=== PATIENT | female | born 1985 | race Caucasian/White ===

== ENCOUNTER 2016-10-07 16:23 | Emergency (ER) | payer BC ==
[2016-10-07 17:56] VITALS: BP 134/100
[2016-10-07] MEDS ORDERED: Albuterol/Ipratropium NEB.SOL* Albuterol 2.5 MG/Ipratropium 0.5 MG 3 ML INH ONE (18:27)
[2016-10-07] MEDS ORDERED: predniSONE TAB* 20 MG PO ONE (18:27)
--- NOTE | 2016-10-07 18:27 | UC ---
Respiratory Complaint HPI - HPI Summary HPI Summary: worsening bronchospastic cough, seen pcp last week rx robitussin and codeine without relief of any symptoms - History of Current Complaint Chief Complaint: UCRespiratory Stated Complaint: COUGH, SORE THROAT, AND EAR ACHE Time Seen by Provider: 10/07/16 18:20 Hx Obtained From: Patient Hx Last Menstrual Period: IUD ?: No Onset/Duration: Gradual Onset, Lasting Weeks - 1, Still Present, Worse Since - daily Timing: Constant Severity Initially: Moderate Severity Currently: Moderate Character: Cough: Nonproductive Aggravating Factors: Deep Breaths, Recumbent Position Alleviating Factors: Nothing Associated Signs And Symptoms: Positive: Chills, Pleuritic Chest Pain, URI, Nasal Congestion, Sinus Discomfort - Allergies/Home Medications Allergies/Adverse Reactions: Allergies Allergy/AdvReac Type Severity Reaction Status Date / Time Oxycodone [From Percocet] Allergy Vomiting Verified 10/07/16 17:56 Home Medications: Home Medications Dextromethorphan-Phenylephrine [Vicks Dayquil Cold & Flu 10-5-325 mg/15Ml] 1 liq PO PRN 10/07/16 [History] Pprswsqmzacwa-Bnwgmszsxo-Ugtih [Nyquil Severe Cold/Flu 5-6.25-10-325 mg/15Ml] 1 liq PO PRN 10/07/16 [History] [place]* 10/07/16 [History] PMH/Surg Hx/FS Hx/Imm Hx Previously Healthy: No Endocrine History Of: Denies: Diabetes, Thyroid Disease Cardiovascular History Of: Denies: Cardiac Disorders, Hypertension, Pacemaker/ICD Respiratory History Of: Denies: COPD, Asthma GI/ History Of: Denies: Ulcer Neurological History Of: Reports: Migraine - 1 PER MONTH Other History Of: Negative For: Anticoagulant Therapy - Surgical History Surgical History: Yes Surgery Procedure, Year, and Place: WISDOM TEETH REMOVED - Family History Known Family History: Positive: None Family History: no reported cardio vascular issues in family lineage - Social History Occupation: Employed Full-time Lives: With Family Alcohol Use: None Substance Use Type: None Smoking Status (MU): Never Smoked Tobacco Have You Smoked in the Last Year: No When Did the Patient Quit Smoking/Using Tobacco: 10/19/2013 - Immunization History Most Recent Influenza Vaccination: 2013 Most Recent Tetanus Shot: 2004 Review of Systems Constitutional: Chills, Fatigue Skin: Negative Eyes: Negative ENT: Ear Ache, Nasal Discharge Respiratory: Cough Cardiovascular: Chest Pain Gastrointestinal: Negative Genitourinary: Negative Motor: Negative Neurovascular: Negative Musculoskeletal: Negative Neurological: Negative Psychological: Negative All Other Systems Reviewed And Are Negative: Yes Physical Exam Triage Information Reviewed: Yes Appearance: No Pain Distress, Well-Nourished, Ill-Appearing - mild Vital Signs: Initial Vital Signs Temp 97.8 F 10/07/16 17:52 Pulse 68 10/07/16 17:52 Resp 16 10/07/16 17:52 BP 134/100 10/07/16 17:52 Pulse Ox 100 10/07/16 17:52 Vital Signs Reviewed: Yes Eye Exam: Normal Eyes: Positive: Conjunctiva Clear ENT Exam: Normal ENT: Positive: Hearing grossly normal, Pharynx normal, Nasal congestion, Nasal drainage, TMs normal. Negative: Tonsillar swelling, Tonsillar exudate, Trismus , Muffled/hoarse voice Dental Exam: Normal Neck exam: Normal Neck: Positive: Supple, Nontender, No Lymphadenopathy Respiratory Exam: Other Respiratory: Positive: Chest non-tender, No respiratory distress, No accessory muscle use, Accessory muscle use, Wheezing Cardiovascular: Positive: RRR, No Murmur, Pulses Normal, Brisk Capillary Refill Musculoskeletal Exam: Normal Musculoskeletal: Positive: Strength Intact, ROM Intact, No Edema Neurological Exam: Normal Neurological: Positive: Alert, Muscle Tone Normal Psychological Exam: Normal Skin Exam: Normal UC Diagnostic Evaluation - Laboratory O2 Sat by Pulse Oximetry: 100 Re-Evaluation - Re-Evaluation First Eval Change: Improved - increase air movement and less cough Respiratory Course/Dx - Course Course Of Treatment: prednisone, zithromax, albuterol, increase fluids, follow with pcp - Differential Dx/Diagnosis Differential Diagnosis/HQI/PQRI: Asthma, Bronchitis, Laryngitis, Sinusitis Provider Diagnoses: Bronchitis with Bronchospastic cough Discharge - Discharge Plan Condition: Stable Disposition: HOME Prescriptions: Albuterol 2.5MG/3ML (0.083%)* [Ventolin 2.5 MG/3 ML NEB.HECTOR*] 2.5 mg INH Q6H PRN #1 box PRN Reason: cough/wheeze Albuterol HFA INHALER* [Ventolin HFA Inhaler*] 2 puff INH Q6H PRN #1 mdi PRN Reason: cough/wheeze Azithromycin TAB* [Zithromax TAB (Z-ORA)*] 0 mg PO .Z-ORA INSTRUCTIONS #6 tab predniSONE TAB* [Deltasone TAB*] 10 mg PO DAILY #20 tab Patient Education Materials: How to Use a Metered-Dose Inhaler (ED), Acute Bronchitis (ED), How to Use a Nebulizer (ED), Bronchospasm (ED) Referrals: Fallon Ferreira MD [Primary Care Provider] - If Needed
== END 2016-10-07 19:01 | disposition home or self-care (01) ==
LOC: UCEAST 16:23
DX: J20.9 Acute bronchitis, unspecified (principal); Z88.2 Allergy status to sulfonamides; Z87.891 Personal history of nicotine dependence
CPT/HCPCS: 94640; 99212; A9270-GY; G0463; J7512

== ENCOUNTER 2016-10-24 16:34 | Emergency (ER) | payer BC ==
[2016-10-24 17:25] VITALS: BP 128/75
--- NOTE | 2016-10-24 18:28 | UC ---
Ear Complaint HPI - HPI Summary HPI Summary: ONE WEEK OF BILATERAL EAR PAIN. NOW HAVING DENTAL PAIN LEFT UPPER TE3ETH. HAS DENTAL APPOINTMENT NEXT FRIDAY - History of Current Complaint Chief Complaint: UCGeneralIllness Stated Complaint: EAR PAIN Time Seen by Provider: 10/24/16 17:29 Hx Obtained From: Patient Hx Last Menstrual Period: 10/17/16 Onset/Duration: Gradual Onset, Lasting Days, Still Present Severity Initially: Moderate Severity Currently: Severe Associated Signs/Symptoms: Positive: URI Symptoms - Allergies/Home Medications Allergies/Adverse Reactions: Allergies Allergy/AdvReac Type Severity Reaction Status Date / Time Oxycodone [From Percocet] Allergy Vomiting Verified 10/24/16 17:25 Home Medications: Home Medications Ibuprofen [Ibuprofen 200 MG] 2 tab PRN 10/24/16 [History] PMH/Surg Hx/FS Hx/Imm Hx Previously Healthy: Yes Endocrine History Of: Denies: Diabetes, Thyroid Disease Cardiovascular History Of: Denies: Cardiac Disorders, Hypertension, Pacemaker/ICD Respiratory History Of: Denies: COPD, Asthma GI/ History Of: Denies: Ulcer Neurological History Of: Reports: Migraine - 1 PER MONTH Other History Of: Negative For: Anticoagulant Therapy - Surgical History Surgical History: Yes Surgery Procedure, Year, and Place: WISDOM TEETH REMOVED - Family History Known Family History: Positive: None Negative: Cardiac Disease Family History: no reported cardio vascular issues in family lineage - Social History Occupation: Employed Full-time Lives: With Family Alcohol Use: None Substance Use Type: None Smoking Status (MU): Former Smoker Have You Smoked in the Last Year: No When Did the Patient Quit Smoking/Using Tobacco: 10/19/2013 Household Exposure Type: Cigarettes - Immunization History Most Recent Influenza Vaccination: 05/2016 Most Recent Tetanus Shot: 2004 Review of Systems Constitutional: Negative Skin: Negative Eyes: Negative ENT: Dental Pain, Ear Ache Respiratory: Negative Cardiovascular: Negative Gastrointestinal: Negative Genitourinary: Negative Motor: Negative Neurovascular: Negative Musculoskeletal: Negative Neurological: Negative Psychological: Negative All Other Systems Reviewed And Are Negative: Yes Physical Exam Triage Information Reviewed: Yes Appearance: Well-Appearing, Well-Nourished, Pain Distress - MODERATE Vital Signs: Initial Vital Signs Temp 97.3 F 10/24/16 17:21 Pulse 67 10/24/16 17:21 Resp 16 10/24/16 17:21 BP 128/75 10/24/16 17:21 Pulse Ox 98 10/24/16 17:21 Vital Signs Reviewed: Yes Eye Exam: Normal Eyes: Positive: Conjunctiva Clear ENT: Positive: Hearing grossly normal, Pharynx normal, TM dull Dental: Positive: Percussion Tenderness @ - #12, #13 Neck: Positive: Supple, Tenderness @ - LEFT ANTERIOR CERVICAL LN, Enlarged Nodes @ - LEFT ANTERIOR CERVICAL LN Respiratory Exam: Normal Respiratory: Positive: Chest non-tender, Lungs clear, Normal breath sounds, No respiratory distress, No accessory muscle use Cardiovascular Exam: Normal Cardiovascular: Positive: RRR, No Murmur, Pulses Normal, Brisk Capillary Refill Abdominal Exam: Normal Abdomen Description: Positive: Nontender, No Organomegaly Musculoskeletal Exam: Normal Musculoskeletal: Positive: Strength Intact, ROM Intact Neurological Exam: Normal Psychological Exam: Normal Skin Exam: Normal Ear Complaint Course/Dx - Differential Dx/Diagnosis Differential Diagnosis/HQI/PQRI: Otitis Externa, Otitis Media, URI Provider Diagnoses: OTITIS SEROUS. OTALGIA. ODONTOGENIC PAIN Discharge - Discharge Plan Condition: Stable Disposition: HOME Prescriptions: Amoxicillin/Clavulanate TAB* [Augmentin TAB 875*] 875 mg PO BID #20 tab traMADol TAB* [Ultram*] 50 mg PO Q12H PRN #10 tab MDD two tabs PRN Reason: Pain Patient Education Materials: Earache (ED), Toothache (ED), Serous Otitis Media (ED) Referrals: Fallon Ferreira MD [Primary Care Provider] - [facility]: 1 - TENDER HERE
== END 2016-10-24 18:13 | disposition home or self-care (01) ==
LOC: UCEAST 16:34
DX: H65.03 Acute serous otitis media, bilateral (principal); H92.03 Otalgia, bilateral; K08.89 Other specified disorders of teeth and supporting structures; Z87.891 Personal history of nicotine dependence; Z86.69 Personal history of other diseases of the nervous system and sense organs
CPT/HCPCS: 99212; G0463

== ENCOUNTER 2017-11-04 18:16 | Emergency (ER) | payer BC ==
[2017-11-04 18:30] VITALS: BP 120/79
--- NOTE | 2017-11-04 18:55 | UC ---
Dental HPI - HPI Summary HPI Summary: Patient presents with complaints of dental pain, the left upper second molar began to hurt two days ago. She denies any injury or trauma to the tooth, she states it just started to hurt.She states it is sharp piercing pain. She states she has been taking Tylenol and Advil with no significant relief. - History of Current Complaint Hx Obtained From: Patient Hx Last Menstrual Period: <1 WEEK AGO ?: No Onset/Duration: Sudden Onset, Lasting Days Severity: Moderate Pain Intensity: 10 Aggravating Factor(s): Chewing <Brionna Quinones - Last Filed: 11/04/17 18:49> <Laurence Shin - Last Filed: 11/04/17 19:13> - History of Current Complaint Chief Complaint: UCDentalProblem Stated Complaint: TOOTH PAIN Time Seen by Provider: 11/04/17 18:42 - Allergies/Home Medications Allergies/Adverse Reactions: Allergies Allergy/AdvReac Type Severity Reaction Status Date / Time MS Oxycodone [From Percocet] Allergy Vomiting Verified 11/04/17 18:29 PMH/Surg Hx/FS Hx/Imm Hx Previously Healthy: Yes Other History Of: Negative For: Anticoagulant Therapy - Surgical History Surgical History: Yes Surgery Procedure, Year, and Place: WISDOM TEETH REMOVED - Family History Known Family History: Positive: None Negative: Cardiac Disease Family History: no reported cardio vascular issues in family lineage - Social History Occupation: Employed Full-time Lives: Alone Alcohol Use: None Substance Use Type: None Smoking Status (MU): Former Smoker Have You Smoked in the Last Year: No When Did the Patient Quit Smoking/Using Tobacco: 10/19/2013 Household Exposure Type: Cigarettes - Immunization History Most Recent Influenza Vaccination: 05/2016 Most Recent Tetanus Shot: 2004 <Brionna Quinones - Last Filed: 11/04/17 18:49> Review of Systems Constitutional: Negative Skin: Negative Eyes: Negative ENT: Dental Pain Respiratory: Negative Cardiovascular: Negative Gastrointestinal: Negative Genitourinary: Negative Motor: Negative Neurovascular: Negative Musculoskeletal: Negative Neurological: Negative Psychological: Negative Is Patient Immunocompromised?: No All Other Systems Reviewed And Are Negative: Yes <Brionna Quinones - Last Filed: 11/04/17 18:49> Physical Exam Triage Information Reviewed: Yes Appearance: Well-Appearing Vital Signs: Initial Vital Signs Temp 98.3 F 11/04/17 18:26 Pulse 80 11/04/17 18:26 Resp 16 11/04/17 18:26 BP 120/79 11/04/17 18:26 Pulse Ox 100 11/04/17 18:26 Vital Signs Reviewed: Yes Eye Exam: Normal ENT Exam: Other - pain on palpation of the left upper second molar, with old filling present, mild erythma noted of lateral gum tissue. no induration or flucuance. Dental Exam: Normal Neck exam: Normal Neck: Positive: 1 Respiratory Exam: Normal Cardiovascular Exam: Normal Abdominal Exam: Normal Musculoskeletal Exam: Normal Neurological Exam: Normal Psychological Exam: Normal Skin Exam: Normal <Brionna Quinones - Last Filed: 11/04/17 18:49> Vital Signs: Initial Vital Signs Temp 98.3 F 11/04/17 18:26 Pulse 80 11/04/17 18:26 Resp 16 11/04/17 18:26 BP 120/79 11/04/17 18:26 Pulse Ox 100 11/04/17 18:26 <Laurence Shin - Last Filed: 11/04/17 19:13> Dental Complaint Course/Dx - Course Course Of Treatment: Patient presents with complaints of dental pain, she does have a filling in the tooth of question, he did have some induration, of the lateral gumline. She was treated with penvk 500 mg by mouth four times daily, and pain was addressed with tyelnol and codeine. She was referred to dentist. - Differential Dx/Diagnosis Differential Diagnosis/Dx: Dental Abscess, Dental Caries Provider Diagnoses: dental abscess. dental pain <Brionna Quinones - Last Filed: 11/04/17 18:49> Discharge <Brionna Quinones - Last Filed: 11/04/17 18:49> <Laurence Shin - Last Filed: 11/04/17 19:13> - Discharge Plan Condition: Stable Disposition: HOME Prescriptions: Acetaminop/Codeine 30 MG TAB* [Tylenol/Codeine 30 MG TAB*] 1 - 2 tab PO Q6H PRN #14 tab MDD 6 PRN Reason: dental pain Penicillin VK TAB* [Penicillin VK 250 mg Tab*] 500 mg PO QID #40 tab Patient Education Materials: Dental Abscess (ED), Toothache (ED) Referrals: Fallon Ferreira MD [Primary Care Provider] - Attestation Statement User Type: Provider - I was available for consult. This patient was seen by the EBONY. The patient was not presented to, seen by, or examined by me. -Naty <Laurence Shin - Last Filed: 11/04/17 19:13>
== END 2017-11-04 18:50 | disposition home or self-care (01) ==
LOC: UCEAST 18:16
DX: K04.7 Periapical abscess without sinus (principal); K08.89 Other specified disorders of teeth and supporting structures; Z88.5 Allergy status to narcotic agent; Z87.891 Personal history of nicotine dependence
CPT/HCPCS: 99212; G0463

== ENCOUNTER 2017-12-24 20:58 | Emergency (ER) | payer SELFPAY ==
[2017-12-24 21:09] VITALS: BP 130/78
[2017-12-24] MEDS ORDERED: Ibuprofen TAB* 600 MG PO ONE (21:15)
--- NOTE | 2017-12-24 21:36 | RAD ---
HISTORY: Right ankle and right foot pain, trauma COMPARISONS: None VIEWS: 7, Frontal, lateral, and oblique views of the right ankle and of the right foot FINDINGS: BONE DENSITY: Normal. BONES: There is no displaced fracture. JOINTS: There is no arthropathy. ALIGNMENT: There is no dislocation. SOFT TISSUES: Unremarkable. OTHER FINDINGS: None. IMPRESSION: NO ACUTE OSSEOUS INJURY TO THE RIGHT FOOT OR RIGHT ANKLE. IF SYMPTOMS PERSIST, RECOMMEND REPEAT IMAGING.
--- NOTE | 2017-12-24 21:44 | UC ---
Mary Evans Rebecca, scribed for Philipp Peters MD on 12/24/17 at 2118 . Lower Extremity/Ankle HPI - HPI Summary HPI Summary: Patient is a 32 y/o F who presents to [facility] c/o right ankle and foot pain s/p suspected twisting. She reports that while at work today, at approximately 1100 , she was walking down concrete steps carrying a few small rugs when her foot suddenly "tweaked." States she is unsure exactly what happened, though she suspects the foot inverted. Pain has gradually worsened since onset and is currently severe, ranked 8/10. Took an Aleve when the incident first occurred which slightly improved symptoms. Pain aggravated by twisting the foot. - History of Current Complaint Chief Complaint: UCLowerExtremity Stated Complaint: ANKLE INJURY Time Seen by Provider: 12/24/17 21:05 Hx Obtained From: Patient Hx Last Menstrual Period: 1 week ago Onset/Duration: Gradual Onset, Lasting Hours, Still Present Severity Currently: Severe Pain Intensity: 8 Pain Scale Used: 0-10 Numeric Aggravating Factor(s): Other - Twisting the foot Alleviating Factor(s): OTC Meds Able to Bear Weight: Yes - Allergies/Home Medications Allergies/Adverse Reactions: Allergies Allergy/AdvReac Type Severity Reaction Status Date / Time acetaminophen [From Percocet] AdvReac Vomiting Verified 12/24/17 21:04 oxycodone [From Percocet] AdvReac Vomiting Verified 12/24/17 21:04 Home Medications: Home Medications Naproxen Sodium [Aleve] 220 mg PO Q12HR PRN 12/24/17 [History Confirmed 12/24/17 ] Rizatriptan Benzoate [Rizatriptan Benzoate Odt] 10 mg PO PRN 12/24/17 [History] PMH/Surg Hx/FS Hx/Imm Hx - Additional Past Medical History Additional PMH: No PMHx HTN, DM, CAD - Surgical History Surgical History: Yes Surgery Procedure, Year, and Place: Dental - Family History Known Family History: Positive: Hypertension, Diabetes, Other - Lung CA, stroke - Social History Alcohol Use: None Substance Use Type: None Smoking Status (MU): Never Smoked Tobacco Review of Systems Constitutional: Negative Skin: Negative Eyes: Negative ENT: Negative Respiratory: Negative Cardiovascular: Negative Gastrointestinal: Negative Genitourinary: Negative Motor: Negative Neurovascular: Negative Musculoskeletal: Other: - Right foot and ankle pain Neurological: Negative Psychological: Negative All Other Systems Reviewed And Are Negative: Yes Physical Exam - Summary Physical Exam Summary: VITAL SIGNS: Reviewed. GENERAL: ~Patient is a well developed and nourished female who is lying comfortable in the stretcher. ~Patient is not in any acute respiratory distress. HEAD AND FACE: Normocephalic EYES: PERRLA, EOMI x 2. EARS: Hearing grossly intact. MOUTH: Oropharynx within normal limits. NECK: Supple, trachea is midline, no adenopathy, no JVD, no carotid bruit. CHEST: Symmetric, no tenderness at palpation LUNGS: Clear to auscultation bilaterally. No wheezing or crackles. CVS: Regular rate and rhythm, S1 and S2 present, no murmurs or gallops appreciated. ABDOMEN: Soft, non-tender. Bowel sounds are normal. No abdominal abnormal pulsations. EXTREMITIES: Full ROM in all major joints, no edema, no cyanosis or clubbing. Slight tenderness on the dorsal aspect of the foot. NEURO: Alert and oriented x 3. No acute neurological deficits. Speech is normal and follows commands. SKIN: Dry and warm Triage Information Reviewed: Yes Vital Signs: Initial Vital Signs Temp 98.0 F 12/24/17 21:06 Pulse 76 12/24/17 21:06 Resp 18 12/24/17 21:06 BP 130/78 12/24/17 21:06 Pulse Ox 100 12/24/17 21:06 Vital Signs Reviewed: Yes Lower Extremity Course/Dx - Course Course Of Treatment: Patient is a 32 y/o F who presents to [facility] c/o right ankle and foot pain s/p suspected twisting. She reports that while at work today , at approximately 1100, she was walking down concrete steps carrying a few small rugs when her foot suddenly "tweaked." States she is unsure exactly what happened, though she suspects the foot inverted. Pain has gradually worsened since onset and is currently severe, ranked 8/10. Took an Aleve when the incident first occurred which slightly improved symptoms. Pain aggravated by twisting the foot. While at [facility] pt took Ibuprofen. Foot and ankle xrays negative for fracture or dislocation. Patient was placed an NERISSA bandage and discharged home with f/u of PMD. The patient was found to have increase BP in UC. The patient will follow up with PCP for better control of BP. - Differential Dx/Diagnosis Differential Diagnosis/HQI/PQRI: Bursitis, Contusion, Fracture (Closed), Sprain , Strain Provider Diagnoses: Ankle and foot sprain Discharge - Sign-Out/Discharge Documenting (check all that apply): Discharge - Discharge Plan Condition: Stable Disposition: HOME Patient Education Materials: Ankle Sprain (DC), Foot Sprain (ED) Referrals: [facility] [Outside] - 3 Days Additional Instructions: FOLLOW UP WITH YOUR PRIMARY CARE PROVIDER WITHIN ONE WEEK FOR HIGH BLOOD PRESSURE NOTED TODAY. - Billing Disposition and Condition Condition: STABLE Disposition: HOME The documentation as recorded by the Mary goodrich Rebecca accurately reflects the service I personally performed and the decisions made by Fran joseph Walter, MD.
== END 2017-12-24 21:51 | disposition home or self-care (01) ==
LOC: MERGE 20:58 → UCEAST 20:58
DX: S93.601A Unspecified sprain of right foot, initial encounter (principal); S93.401A Sprain of unspecified ligament of right ankle, initial encounter; X58.XXXA Exposure to other specified factors, initial encounter; Y93.01 Activity, walking, marching and hiking; Y92.9 Unspecified place or not applicable; Z88.6 Allergy status to analgesic agent; Z88.5 Allergy status to narcotic agent
CPT/HCPCS: 99202; A9270-GY; G0463

== ENCOUNTER 2018-06-23 18:14 | Emergency (ER) | payer BC ==
[2018-06-23 18:26] VITALS: BP 141/84
--- NOTE | 2018-06-23 18:55 | UC ---
Skin Complaint HPI - HPI Summary HPI Summary: 33-year-old female presents with complaints of a pruritic rash to her bilateral upper arms. Symptoms began 3 days ago after returning from a cruise to [place]. Denies any changes to soaps, lotions, cosmetics, insect bites, or known contact with environmental irritants. She is unsure about the detergent that was used for the cleaning of the linens on the cruise ship and she ate some exotic foods while on the cruise. Has tried topical Benadryl and calamine lotion without relief. Reports her who was traveling with her on the cruise is asymptomatic. - History of Current Complaint Chief Complaint: UCSkin Time Seen by Provider: 06/23/18 18:26 Stated Complaint: RASH Hx Obtained From: Patient Hx Last Menstrual Period: 06/08/2018 ?: No Onset/Duration: Gradual Onset, Lasting Days - 3 Onset Severity: Mild Current Severity: Moderate Pain Intensity: 0 Location: Other - And bilateral upper arms Character: Pruritus Aggravating Factor(s): Clothing, Touch Alleviating Factor(s): Nothing Associated Signs & Symptoms: Positive: Rash. Negative: Difficulty Breathing, Fever, Chills, Wheezing, Throat Tightening - Allergy/Home Medications Allergies/Adverse Reactions: Allergies Allergy/AdvReac Type Severity Reaction Status Date / Time acetaminophen [From Percocet] AdvReac Vomiting Verified 06/23/18 18:20 oxycodone [From Percocet] AdvReac Vomiting Verified 06/23/18 18:20 Review of Systems Constitutional: Negative Skin: Rash Respiratory: Negative Is Patient Immunocompromised?: No All Other Systems Reviewed And Are Negative: Yes PMH/Surg Hx/FS Hx/Imm Hx Neurological History: Migraine - Surgical History Surgical History: None Surgery Procedure, Year, and Place: WISDOM TEETH REMOVED - Family History Known Family History: Positive: Hypertension, Diabetes, Other - Lung CA, stroke Family History: no reported cardio vascular issues in family lineage - Social History Occupation: Employed Full-time Lives: With Family Alcohol Use: Rare Substance Use Type: None Smoking Status (MU): Former Smoker Have You Smoked in the Last Year: No When Did the Patient Quit Smoking/Using Tobacco: 10/19/2013 Household Exposure Type: Cigarettes - Immunization History Most Recent Influenza Vaccination: 05/2016 Most Recent Tetanus Shot: 2004 Physical Exam Triage Information Reviewed: Yes Appearance: Well-Appearing, No Pain Distress, Well-Nourished Vital Signs: Initial Vital Signs Temp 98.5 F 06/23/18 18:19 Pulse 78 06/23/18 18:19 Resp 18 06/23/18 18:19 BP 141/84 06/23/18 18:19 Pulse Ox 100 06/23/18 18:19 Eyes: Positive: Conjunctiva Clear. Negative: Discharge ENT: Positive: Pharynx normal, Uvula midline, Other - Airway patent Respiratory: Positive: Lungs clear, Normal breath sounds, No respiratory distress Cardiovascular: Positive: RRR, No Murmur Neurological: Positive: Alert Skin: Positive: rashes - Diffuse papular rash to bilateral upper arms Course/Dx - Course Course Of Treatment: 33 year old female presents with prurutic rash to bilateral upper arms. The localization and appearance of rash suggestive of a contact dermatitis. No identifiable irritant as patient recently returned from cruise and had multiple possible contacts. Will treat with high potency steroid ointment and oral diphenhydramine as needed for itching. - Diagnoses Provider Diagnoses: contact dermatitis Discharge - Sign-Out/Discharge Documenting (check all that apply): Patient Departure All imaging exams completed and their final reports reviewed: No Studies - Discharge Plan Condition: Stable Disposition: HOME Prescriptions: Halobetasol Propionate 15 gm TP BID #30 gm Patient Education Materials: Contact Dermatitis (ED) Referrals: Fallon Ferreira MD [Primary Care Provider] - If Needed Additional Instructions: Apply halobetasol ointment to affected area twice daily. Do not use for more than 2 weeks. You may take an [id number] diphenhydramine (Benadryl) according to directions as needed for itching. Follow-up with your primary care provider if symptoms do not improve. - Billing Disposition and Condition Condition: STABLE Disposition: Home
== END 2018-06-23 18:58 | disposition home or self-care (01) ==
LOC: UCEAST 18:14
DX: L25.9 Unspecified contact dermatitis, unspecified cause (principal); Z88.6 Allergy status to analgesic agent; Z88.5 Allergy status to narcotic agent; Z87.891 Personal history of nicotine dependence
CPT/HCPCS: 99212; G0463

== ENCOUNTER 2019-01-03 07:30 | Emergency (ER) | payer BC ==
[2019-01-03 07:49] VITALS: BP 121/75
--- NOTE | 2019-01-03 07:57 | UC ---
Respiratory Complaint HPI - HPI Summary HPI Summary: Patient is a 33 year old woman , who present today to the urgent care with URI symptoms for past 1 week. She reports sore throat and productive cough, producing greenish phlegm. Also feels congested with ear pain, more on the left side. Chest pain with coughing. 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 She is also exposed to a lot of kids. No skin rash. no fevers at home. Denies any shortness of breath . Denies any abdominal pain , nausea or vomiting , diarrhea or constipation. - History of Current Complaint Chief Complaint: UCRespiratory Stated Complaint: COUGH SORE THROAT EAR PAIN Time Seen by Provider: 01/03/19 07:39 Hx Obtained From: Patient Hx Last Menstrual Period: 12/27/18 ?: No Pain Intensity: 8 - Allergies/Home Medications Allergies/Adverse Reactions: Allergies Allergy/AdvReac Type Severity Reaction Status Date / Time acetaminophen [From Percocet] AdvReac Vomiting Verified 01/03/19 07:49 oxycodone [From Percocet] AdvReac Vomiting Verified 01/03/19 07:49 Home Medications: Home Medications Dm/PE/Acetaminophen/Doxylamine [Vicks Nyquil Severe Cold-Flu] 1 each PO ONCE PRN 01/03/19 [History Confirmed 01/03/19] PMH/Surg Hx/FS Hx/Imm Hx - Additional Past Medical History Additional PMH: chronic migraines Previously Healthy: Yes Other History Of: Negative For: Anticoagulant Therapy - Surgical History Surgical History: Yes Surgery Procedure, Year, and Place: WISDOM TEETH REMOVED - Family History Known Family History: Positive: None, Hypertension, Diabetes, Other - Lung CA, stroke Negative: Cardiac Disease Family History: no reported cardio vascular issues in family lineage - Social History Alcohol Use: None Substance Use Type: None Smoking Status (MU): Former Smoker Have You Smoked in the Last Year: No When Did the Patient Quit Smoking/Using Tobacco: 10/19/2013 Household Exposure Type: Cigarettes - Immunization History Most Recent Influenza Vaccination: 05/2016 Most Recent Tetanus Shot: 2004 Review of Systems All Other Systems Reviewed And Are Negative: Yes Constitutional: Positive: Negative Skin: Positive: Negative Eyes: Positive: Negative ENT: Positive: Sore Throat, Ear Ache, Sinus Congestion Respiratory: Positive: Cough - productive of greenish phlegm Cardiovascular: Positive: Negative Gastrointestinal: Positive: Negative Genitourinary: Positive: Negative Motor: Positive: Negative Neurovascular: Positive: Negative Musculoskeletal: Positive: Negative Neurological: Positive: Negative Psychological: Positive: Negative Is Patient Immunocompromised?: No Physical Exam - Summary Physical Exam Summary: Physical Exam: Const: Appears well. No signs of apparent distress present. Alert and oriented x 3. Musculo: Walks with a normal gait. Head/Face: Atraumatic, normocephalic on inspection. Eyes: EOMI and PERRLA in both eyes. Conjunctivae clear. No discharge noted ENT: Hearing normal, TM normal appearing bilaterally, No tenderness to palpation on maxillary and frontal sinus. mild pharyngeal erythema without any exudates . Uvula is midline. No cervical or submandibular lymphadenopathy noted. Respiratory: Respirations are unlabored. Lungs clear to auscultation bilaterally, no wheezing , rhonchi or rales noted . CVS: Regular rate and Rhythm, S1S2 normal , no murmurs identified. Extremities: Peripheral circulation is grossly normal. Pulses 2+ Abdomen : Soft non tender , nondistended , Bowel sounds present . No guarding , rebound tenderness or rigidity noted. Skin: No lesions or rash located on the upper extremities or on the lower extremities. Neuro: Cranial nerves II to XII intact, motor and sensory intact. DTR Intact bilaterally. Mood is normal. Affect is normal. Triage Information Reviewed: Yes Vital Signs: Initial Vital Signs Temp 99.1 F 01/03/19 07:45 Pulse 84 01/03/19 07:45 Resp 18 01/03/19 07:45 BP 121/75 01/03/19 07:45 Pulse Ox 97 01/03/19 07:45 Vital Signs Reviewed: Yes Respiratory Course/Dx - Course Course Of Treatment: During the visit today, we obtained rapid flu and strep test which were both negative. Will prescribe the medication for the cough and congestion. I will also prescribe a course of azithromycin to be filled only if symptoms are not improving over next 2-3 days.she will follow with her primary care doctor in 1 week. she is allergic to oxycodone- throws up with the pill form but has comfortably taken codeine cough syrup without any difficulty or allergic reaction in the past. Patient expressed understanding . - Differential Dx/Diagnosis Provider Diagnosis: Viral URI with cough Discharge - Sign-Out/Discharge Documenting (check all that apply): Patient Departure All imaging exams completed and their final reports reviewed: No Studies - Discharge Plan Condition: Stable Disposition: HOME Prescriptions: Azithromyxin ORA (NF) [Z-Ora (Zithromax) 250 mg tabs #6] 2 tab PO .TODAY, THEN 1 DAILY #6 tab Codeine Phosphate/Guaifenesin [Guaifen-Codeine 100-10 mg/5 ml] 5 ml PO Q6HR 5 Days #1 btl MDD 20 ml Fluticasone NASAL SPRAY 50MCG* [Flonase NASAL SPRAY 50MCG*] 1 spray BOTH NARES DAILY 5 Days #1 btl Patient Education Materials: Viral Syndrome (ED) Referrals: Fallon Ferreira MD [Primary Care Provider] - 1 Week Additional Instructions: you tested negative for flu and strep. Please start taking the medication as prescribed to the pharmacy . please fill azithromycin if no improvement of symptoms over the next 2-3 days. Keep yourself hydrated. Ibuprofen as needed for fever Follow up with your primary care doctor in 1 week Return to Urgent care / ER if symptoms get worse. - Billing Disposition and Condition Condition: STABLE Disposition: Home
[2019-01-03 08:33] LABS: Influenza A Molecular NEGATIVE (Negative); Influenza B Molecular NEGATIVE (Negative)
== END 2019-01-03 08:48 | disposition home or self-care (01) ==
LOC: UCEAST 07:30
DX: J06.9 Acute upper respiratory infection, unspecified (principal); G43.909 Migraine, unspecified, not intractable, without status migrainosus; Z88.6 Allergy status to analgesic agent; Z88.5 Allergy status to narcotic agent
CPT/HCPCS: 87651; 99212; G0463

== ENCOUNTER 2019-06-05 18:48 | Emergency (ER) | payer BC ==
[2019-06-05 19:04] VITALS: BP 128/73
--- NOTE | 2019-06-05 19:17 | UC ---
Ear Complaint HPI - HPI Summary HPI Summary: 34-year-old female presents with complaints of onset of left ear pain at 3:00 this morning. States pain has progressively worsened throughout the day. Reports she didn't notice a pimple-like lesion immediately behind the left ear lobe. No new piercings. Denies any fever, chills, URI symptoms, ear drainage, tinnitus, or vertigo. - History of Current Complaint Chief Complaint: UCEar Stated Complaint: EAR PAIN Time Seen by Provider: 06/05/19 19:10 Hx Obtained From: Patient Hx Last Menstrual Period: 05/27/19 Pain Intensity: 5 - Allergies/Home Medications Allergies/Adverse Reactions: Allergies Allergy/AdvReac Type Severity Reaction Status Date / Time acetaminophen [From Percocet] AdvReac Vomiting Verified 06/05/19 19:05 oxycodone [From Percocet] AdvReac Vomiting Verified 06/05/19 19:05 Home Medications: Home Medications Ibuprofen 800 mg PO DAILY PRN 06/05/19 [History Confirmed 06/05/19] PMH/Surg Hx/FS Hx/Imm Hx Neurological History: Migraine Other History Of: Negative For: Anticoagulant Therapy - Surgical History Surgical History: Yes Surgery Procedure, Year, and Place: WISDOM TEETH REMOVED - Family History Known Family History: Positive: None, Hypertension, Diabetes, Other - Lung CA, stroke Negative: Cardiac Disease Family History: no reported cardio vascular issues in family lineage - Social History Occupation: Employed Full-time Lives: With Family Alcohol Use: None Substance Use Type: None Smoking Status (MU): Former Smoker Have You Smoked in the Last Year: No When Did the Patient Quit Smoking/Using Tobacco: 10/19/2013 Household Exposure Type: Cigarettes - Immunization History Most Recent Influenza Vaccination: 05/2016 Most Recent Tetanus Shot: 2004 Review of Systems All Other Systems Reviewed And Are Negative: Yes Constitutional: Negative: Fever, Chills Skin: Positive: Other - See HPI Eyes: Negative: Drainage, Eye Redness ENT: Positive: Ear Ache. Negative: Sore Throat, Nasal Discharge, Sinus Congestion, Sinus Pain/Tenderness Respiratory: Negative: Cough Cardiovascular: Positive: Negative Gastrointestinal: Positive: Negative Genitourinary: Positive: Negative Musculoskeletal: Positive: Negative Neurological: Positive: Negative Is Patient Immunocompromised?: No Physical Exam - Summary Physical Exam Summary: GENERAL APPEARANCE: Well developed, well nourished, alert and cooperative, and appears to be in no acute distress. EYES: Conjunctiva clear. No drainage. EARS: Small erythematous pustular lesion behind to the left neck immediate behind the left earlobe. Tenderness with palpation to the left tragus and michelle of the ear. There is some mild erythema of the michelle. External auditory canals and tympanic membranes clear, hearing grossly intact. NOSE: No nasal discharge. THROAT: Pharynx normal. No tonsilar inflammation, swelling, exudate, or lesions. Uvula midline. Oral cavity normal. Teeth and gingiva in good general condition. NECK: Neck supple, non-tender without lymphadenopathy. CARDIAC: Normal S1 and S2. No S3, S4 or murmurs. Rhythm is regular. There is no peripheral edema, cyanosis or pallor. Extremities are warm and well perfused. Capillary refill is less than 2 seconds. Peripheral pulses intact. LUNGS: Clear to auscultation without rales, rhonchi, wheezing or diminished breath sounds. ABDOMEN: Positive bowel sounds. Soft, nondistended, nontender. No guarding or rebound. No masses or hepatosplenomegally. MUSKULOSKELETAL: ROM intact to all extremities. No joint erythema or tenderness. Normal muscular development. Normal gait. SKIN: Skin normal color, texture and turgor. Triage Information Reviewed: Yes Vital Signs: Initial Vital Signs Temp 98.0 F 06/05/19 19:01 Pulse 67 06/05/19 19:01 Resp 18 06/05/19 19:01 BP 128/73 06/05/19 19:01 Pulse Ox 98 06/05/19 19:01 Vital Signs Reviewed: Yes Ear Complaint Course/Dx - Course Course Of Treatment: 34-year-old female presents with complaints of onset of left ear pain at 3:00 this morning. States pain has progressively worsened throughout the day. Reports she didn't notice a pimple-like lesion immediately behind the left ear lobe. Denies any fever, chills, URI symptoms, ear drainage, tinnitus, or vertigo. Afebrile. VSS. Patient had small erythematous pustular lesion behind to the left neck immediate behind the left earlobe. Tenderness with palpation to the left tragus and michelle of the ear. There is some mild erythema of the michelle. External auditory canals and tympanic membranes clear, hearing grossly intact. Remainder of exam unremarkable. Discussed findings with patient. Suspect that with the pustular lesion and tenderness to the tragus and conch she may have an early cellulitis therefore will start her on cephalexin 500 mg TID x 7 days. She is to follow-up with her primary care provider in 3 days if symptoms are not improving. Anticipatory guidance and warning symptoms were reviewed with the patient. Verbalizes understanding and agrees with plan of care. - Differential Dx/Diagnosis Differential Diagnosis/HQI/PQRI: Cellulitis, Otitis Externa, Otitis Media, Perforated TM Provider Diagnosis: Cellulitis of michelle of left ear Discharge ED - Sign-Out/Discharge Documenting (check all that apply): Patient Departure All imaging exams completed and their final reports reviewed: No Studies - Discharge Plan Condition: Stable Disposition: HOME Prescriptions: Cephalexin CAP* [Keflex 500 CAP*] 500 mg PO TID #21 cap Patient Education Materials: Cellulitis (ED) Referrals: Fallon Ferreira MD [Primary Care Provider] - 3 Days (If no improvement in your symptoms.) Additional Instructions: You have an infection of the skin that appears to be affecting the inside of the left ear. I do not see any evidence infection of the ear canal or of a middle ear. We will start you on an antibiotic to treat the infection. Take cephalexin 500 mg 1 capsule three times a day for 7 days. Take acetaminophen (Tylenol) or ibuprofen (Advil, Motrin) according to directions as needed for pain. Follow-up with your primary care provider in 3 days if her symptoms are not improving. Seek immediate medical attention in the emergency room if you develop a fever greater than 100.5 F, have increased redness or swelling of the ear, or any worsening of symptoms. - Billing Disposition and Condition Condition: STABLE Disposition: Home
== END 2019-06-05 19:35 | disposition home or self-care (01) ==
LOC: UCEAST 18:48
DX: H60.12 Cellulitis of left external ear (principal); Z88.5 Allergy status to narcotic agent; Z87.891 Personal history of nicotine dependence
CPT/HCPCS: 99212; G0463

== ENCOUNTER 2019-07-12 17:54 | Emergency (ER) | payer BC ==
[2019-07-12 18:09] VITALS: BP 121/77
--- NOTE | 2019-07-12 18:31 | UC ---
Skin Complaint HPI - HPI Summary HPI Summary: The patient is a 34-year-old female that presents here with a severely pruritic arm rash. She has been tanning and anticipation of a trip to the [facility]. On day #2 of this being the tanning salon she developed a severely pruritic rash to both arms. After the third day at the tanning salon her rash worsened. Her rash is so pruritic it is causing her some pain. She denies rash anywhere else. - History of Current Complaint Chief Complaint: UCSkin Time Seen by Provider: 07/12/19 18:20 Stated Complaint: RASH Hx Obtained From: Patient Hx Last Menstrual Period: 1.5 weeks ago (has IUD) Onset/Duration: Gradual Onset, Lasting Days Timing: Constant Onset Severity: Mild Current Severity: Moderate Pain Intensity: 6 Pain Scale Used: 0-10 Numeric Location: Discrete Character: Pruritus, Hives, Redness, Raised Aggravating Factor(s): Touch Alleviating Factor(s): Nothing Associated Signs & Symptoms: Positive: Rash Related History: Other: - tanning salon - Allergy/Home Medications Allergies/Adverse Reactions: Allergies Allergy/AdvReac Type Severity Reaction Status Date / Time oxycodone [From Percocet] AdvReac Vomiting Verified 06/05/19 19:05 Home Medications: Home Medications Calamine LOTION* 1 applic .SEE ORDER 07/12/19 [History] Topical Lotion For Rash* 07/12/19 [History] PMH/Surg Hx/FS Hx/Imm Hx Previously Healthy: Yes Other History Of: Negative For: Anticoagulant Therapy - Surgical History Surgical History: Yes Surgery Procedure, Year, and Place: WISDOM TEETH REMOVED - Family History Known Family History: Positive: Hypertension, Diabetes, Other - Lung CA, stroke Negative: Cardiac Disease Family History: no reported cardio vascular issues in family lineage - Social History Alcohol Use: None Substance Use Type: None Smoking Status (MU): Former Smoker Have You Smoked in the Last Year: No When Did the Patient Quit Smoking/Using Tobacco: 10/19/2013 Household Exposure Type: Cigarettes - Immunization History Most Recent Influenza Vaccination: 05/2016 Most Recent Tetanus Shot: 2004 Review of Systems All Other Systems Reviewed And Are Negative: Yes Constitutional: Positive: Negative Skin: Positive: Rash Eyes: Positive: Negative ENT: Positive: Negative Respiratory: Positive: Negative Cardiovascular: Positive: Negative Gastrointestinal: Positive: Negative Genitourinary: Positive: Negative Motor: Positive: Negative Neurovascular: Positive: Negative Musculoskeletal: Positive: Negative Neurological: Positive: Negative Psychological: Positive: Negative Physical Exam Triage Information Reviewed: Yes Appearance: Well-Appearing, No Pain Distress, Well-Nourished Vital Signs: Initial Vital Signs Temp 98.2 F 07/12/19 18:05 Pulse 95 07/12/19 18:05 Resp 16 07/12/19 18:05 BP 121/77 07/12/19 18:05 Pulse Ox 100 07/12/19 18:05 Vital Signs Reviewed: Yes Eyes: Positive: Conjunctiva Clear ENT: Positive: Hearing grossly normal. Negative: Nasal congestion, Nasal drainage, Trismus, Muffled voice, Hoarse voice Neck: Positive: Supple Respiratory: Positive: No respiratory distress Cardiovascular: Positive: RRR Neurological: Positive: Alert Psychological Exam: Normal Skin Exam: Other - red papular rash flexor aspect of both arms L>R Skin: Positive: Rashes Course/Dx - Diagnoses Provider Diagnosis: Rash and nonspecific skin eruption Discharge ED - Sign-Out/Discharge Documenting (check all that apply): Patient Departure All imaging exams completed and their final reports reviewed: No Studies - Discharge Plan Condition: Stable Disposition: HOME Prescriptions: Triamcinolone 0.5% CREAM(NF) [Triamcinolone 0.5% CREAM*] 1 applic TOPICAL QID # 60 tube Patient Education Materials: Acute Rash (ED) Referrals: Fallon Ferreira MD [Primary Care Provider] - 2 Weeks (if not better) - Billing Disposition and Condition Condition: STABLE Disposition: Home
== END 2019-07-12 18:39 | disposition home or self-care (01) ==
LOC: UCEAST 17:54
DX: R21 Rash and other nonspecific skin eruption (principal); Z87.891 Personal history of nicotine dependence; Z88.5 Allergy status to narcotic agent
CPT/HCPCS: 99212; G0463

== ENCOUNTER 2019-08-19 17:07 | Emergency (ER) | payer BC ==
[2019-08-19 17:21] VITALS: BP 129/85
--- NOTE | 2019-08-19 17:37 | UC ---
Throat Pain/Nasal Sanjay HPI - HPI Summary HPI Summary: 34-year-old female comes in with a chief complaint of upper respiratory tract infection symptoms for 3-4 days. She has sinus pressure with green rhinorrhea. Also she feels pressure in her left ear feels like it needs to pop but she can 't make a pop. She does also get it cough in the evening which makes her sore throat worse. No recent fevers measured. - History of Current Complaint Chief Complaint: UCGeneralIllness Stated Complaint: SINUS CONGESTION, SORE THROAT AND EAR ACHE Time Seen by Provider: 08/19/19 17:17 Hx Last Menstrual Period: IUD Pain Intensity: 9 - Allergies/Home Medications Allergies/Adverse Reactions: Allergies Allergy/AdvReac Type Severity Reaction Status Date / Time oxycodone [From Percocet] AdvReac Vomiting Verified 06/05/19 19:05 PMH/Surg Hx/FS Hx/Imm Hx Previously Healthy: Yes Other History Of: Negative For: Anticoagulant Therapy - Surgical History Surgical History: Yes Surgery Procedure, Year, and Place: WISDOM TEETH REMOVED - Family History Known Family History: Positive: None, Hypertension, Diabetes, Other - Lung CA, stroke Negative: Cardiac Disease Family History: no reported cardio vascular issues in family lineage - Social History Alcohol Use: None Substance Use Type: None Smoking Status (MU): Former Smoker Have You Smoked in the Last Year: No When Did the Patient Quit Smoking/Using Tobacco: 10/19/2013 Household Exposure Type: Cigarettes - Immunization History Most Recent Influenza Vaccination: 05/2016 Most Recent Tetanus Shot: 2004 Review of Systems All Other Systems Reviewed And Are Negative: Yes Constitutional: Positive: Other - see hpi Skin: Positive: Negative Eyes: Positive: Negative ENT: Positive: Sore Throat, Ear Ache, Nasal Discharge, Sinus Congestion, Sinus Pain/Tenderness Respiratory: Positive: Cough Cardiovascular: Positive: Negative Gastrointestinal: Positive: Negative Motor: Positive: Negative Neurovascular: Positive: Negative Musculoskeletal: Positive: Negative Neurological: Positive: Negative Psychological: Positive: Negative Is Patient Immunocompromised?: No Physical Exam Triage Information Reviewed: Yes Appearance: No Pain Distress, Well-Nourished, Ill-Appearing - mild Vital Signs: Initial Vital Signs Temp 98.3 F 08/19/19 17:15 Pulse 90 08/19/19 17:15 Resp 18 08/19/19 17:15 BP 129/85 08/19/19 17:15 Pulse Ox 100 08/19/19 17:15 Vital Signs Reviewed: Yes Eye Exam: Normal Eyes: Positive: Conjunctiva Clear ENT: Positive: Pharyngeal erythema, Nasal congestion, Nasal drainage, TMs normal , TM bulging - left, TM dull - left, Sinus tenderness, Uvula midline Neck: Positive: Supple Respiratory: Positive: Lungs clear, Normal breath sounds, No respiratory distress Cardiovascular: Positive: RRR Musculoskeletal: Positive: Strength Intact, ROM Intact Neurological: Positive: Alert, Muscle Tone Normal Psychological: Positive: Normal Response To Family, Age Appropriate Behavior Skin Exam: Normal Throat Pain/Nasal Course/Dx - Course Course Of Treatment: DISCUSSED VIRAL VERSES BACTERIAL INFECTIONS AND THE ROLE OF ANTIBIOTICS. THE PATIENT PREFERS TO BE ON ANTIBIOTICS AT THIS TIME. - Differential Dx/Diagnosis Provider Diagnosis: Acute serous otitis media, left ear, Sinusitis Discharge ED - Sign-Out/Discharge Documenting (check all that apply): Patient Departure All imaging exams completed and their final reports reviewed: No Studies - Discharge Plan Condition: Stable Disposition: HOME Prescriptions: Amoxicillin PO (*) [Amoxicillin 875 MG (*)] 875 mg PO BID #20 tab Fluticasone NASAL SPRAY 50MCG* [Flonase NASAL SPRAY 50MCG*] 2 spray BOTH NARES DAILY #1 btl guaiFENesin/CODIEN 100MG-10MG* [Robitussin AC 100Mg-10Mg*] 10 ml PO Q4H PRN # 120 ml MDD 60ML PRN Reason: Cough Patient Education Materials: Sinusitis (ED), Serous Otitis Media (ED) Forms: *Work Release Referrals: Fallon Ferreira MD [Primary Care Provider] - Additional Instructions: FOLLOW UP WITH YOUR DOCTOR IF NOT COMPLETELY IMPROVED. GET REEVALUATED SOONER IF NOT IMPROVED OR WORSE OR ANY QUESTIONS OR CONCERNS. - Billing Disposition and Condition Condition: STABLE Disposition: Home
== END 2019-08-19 17:50 | disposition home or self-care (01) ==
LOC: UCEAST 17:07
DX: J32.9 Chronic sinusitis, unspecified (principal); H65.02 Acute serous otitis media, left ear; Z87.891 Personal history of nicotine dependence; Z88.5 Allergy status to narcotic agent
CPT/HCPCS: 99212; G0463

== ENCOUNTER 2019-09-09 16:39 | Emergency (ER) | payer BC ==
[2019-09-09 17:37] LABS: ABS Eosinophils 0.1 10^3/ul (0-0.6); ABS Lymphocytes 1.5 10^3/ul (1.0-4.8); ABS Monocytes 0.7 10^3/ul (0-0.8); ABS Neutrophils 7.5 10^3/ul (1.5-7.7); Eosinophil % 1.1 %; Hematocrit 44 % (35-47); Hemoglobin 15.2 g/dL (12.0-16.0); Lymphocyte % 15.4 %; Mean Corpuscular HGB Conc 34 g/dL (31-36); Mean Corpuscular Hemoglobin 30 pg (27-31); Mean Corpuscular Volume 88 fL (80-97); Mean Platelet Volume 9.4 fL (7.4-10.4); Platelet Count 183 10^3/uL (150-450); Red Blood Count 5.02 10^6 /uL (3.70-4.87); Red Cell Distribution Width 13 % (10-15); White Blood Count 9.8 10^3/uL (3.5-10.8)
[2019-09-09 18:07] LABS: ALT 21 U/L (7-52); AST 15 U/L (13-39); Albumin 4.3 g/dL (3.2-5.2); Albumin/Globulin Ratio 1.5 (1-3); Alkaline Phosphatase 97 U/L (34-104); Anion Gap 7 mmol/L (2-11); BUN/Creatinine Ratio 19.5 (8-20); Blood Urea Nitrogen 16 mg/dL (6-24); C Reactive Protein 1.06 mg/L (<8.01); CO2 Carbon Dioxide 27 mmol/L (22-32); Calcium 9.8 mg/dL (8.6-10.3); Chloride 105 mmol/L (101-111); EGFR Non-African American 79.3 (>60); Globulin 2.8 g/dL (2-4); Glucose 100 mg/dL (70-100); Sodium 139 mmol/L (135-145); Total Protein 7.1 g/dL (6.4-8.9)
[2019-09-09 18:09] LABS: HCG Pregnancy < 0.60 mIU/mL
[2019-09-09 18:24] LABS: Urine Appearance Clear; Urine Bilirubin Negative (Negative); Urine Blood Negative (Negative); Urine Color Colorless; Urine Glucose Negative (Negative); Urine Ketones Negative (Negative); Urine Nitrite Negative (Negative); Urine Protein Negative (Negative); Urine Specific Gravity 1.002 (1.010-1.030); Urine Urobilinogen Negative (Negative)
[2019-09-09] MEDS ORDERED: Ketorolac INJ* 30 MG/ML 1 ML VIAL IV PUSH ONE (20:12)
[2019-09-09] MEDS ORDERED: Ondansetron INJ* 2 MG/ML VIAL IV ONE (20:12)
--- NOTE | 2019-09-09 20:17 | ED ---
Abdominal Pain/Female - HPI Summary HPI Summary: This pt is a 34 Y/O F presenting to [facility] accompanied by her with a CC of RLQ abdominal pain that is rated a 10/10 in severity that began at 1430 today and is described as sharp. She states that she was at her job when the pain started, which is described as sharp and stabbing, and has had 2 episodes of both vomiting and diarrhea. She states that she is currently still nauseas and she has had no alleviation of the pain since the onset. She denies any vaginal issues, urinary issues, L sided abdominal pain, and CP. She states that she has no pertinent PMHx and states that she does not smoke, drink alcohol, or use recreational drugs. She states that she quit smoking 6 years ago in October. - History of Current Complaint Chief Complaint: EDAbdSumanin Stated Complaint: SEVERE ABD PAIN PER PT Time Seen by Provider: 09/09/19 19:54 Hx Obtained From: Patient Hx Last Menstrual Period: IUD ?: No Onset/Duration: Sudden Onset, Lasting Hours - 6, Still Present Timing: Constant Severity Initially: Severe Severity Currently: Severe Pain Intensity: 10 Pain Scale Used: 0-10 Numeric Location: Discrete At: RLQ Radiates: No Character: Sharp Aggravating Factor(s): Nothing Alleviating Factor(s): Nothing Associated Signs and Symptoms: Positive: Nausea, Vomiting, Diarrhea. Negative: Chest Pain, Urinary Symptoms, Vaginal Bleeding, Vaginal Discharge Allergies/Adverse Reactions: Allergies Allergy/AdvReac Type Severity Reaction Status Date / Time oxycodone [From Percocet] AdvReac Vomiting Verified 06/05/19 19:05 Home Medications: Home Medications NK [No Home Medications Reported] 09/09/19 [History Confirmed 09/09/19] PMH/Surg Hx/FS Hx/Imm Hx Previously Healthy: Yes Endocrine/Hematology History: Denies: Hx Anticoagulant Therapy, Hx Diabetes, Hx Thyroid Disease Cardiovascular History: Denies: Hx Hypertension, Hx Pacemaker/ICD Respiratory History: Denies: Hx Asthma, Hx Chronic Obstructive Pulmonary Disease (COPD) GI History: Denies: Hx Ulcer Sensory History: Reports: Hx Contacts or Glasses - GLASSES Denies: Hx Hearing Aid Opthamlomology History: Reports: Hx Contacts or Glasses - GLASSES Neurological History: Reports: Hx Migraine - 1 PER MONTH Psychiatric History: Denies: Hx Panic Disorder - Cancer History Hx Hematologic Symptoms: No Hx Chemotherapy: No Hx Radiation Therapy: No Hx Palliative Cancer Treatment: No - Surgical History Surgical History: Yes Surgery Procedure, Year, and Place: WISDOM TEETH REMOVED Hx Anesthesia Reactions: Yes - CRYING AFTER - Immunization History Date of Tetanus Vaccine: unknown Immunizations Up to Date: Yes Infectious Disease History: No Infectious Disease History: Denies: Hx Hepatitis, Hx Human Immunodeficiency Virus (HIV), History Other Infectious Disease, Traveled Outside the [place] in Last 30 Days - Family History Known Family History: Positive: None, Hypertension - maternal and paternal , Diabetes - paternal, Other - Lung CA, stroke Negative: Cardiac Disease Family History: no reported cardio vascular issues in family lineage - Social History Occupation: Employed Full-time Lives: With Family Alcohol Use: None Hx Substance Use: No Substance Use Type: Reports: None Hx Tobacco Use: Yes Smoking Status (MU): Former Smoker Type: Cigarettes Amount Used/How Often: 1/2 PPD Length of Time of Smoking/Using Tobacco: Quit 6 years ago Have You Smoked in the Last Year: No Review of Systems Negative: Chest Pain Gastrointestinal: Negative - L sided abdominal pain Positive: Abdominal Pain - RLQ, Vomiting, Diarrhea, Nausea Genitourinary: Negative - Denies all urinary and vaginal symptoms All Other Systems Reviewed And Are Negative: Yes Physical Exam - Summary Physical Exam Summary: General: Well-developed, Well-nourished female. Mild discomfort. HEENT: Normocephalic, Atraumatic. Eyes: Conjuctiva normal, PERRL. Ears: TMs within normal limits. Nares: (-) discharge, (-) erythema. Oropharynx: Clear, mucous membranes moist, (-) exudates. Neck: Soft, FROM, (-) lymphadenopathy, (-) thyromegaly, (-) JVD. Cardiovascular: Normal sinus rhythm, (-) murmur. Lungs: Clear to auscultation bilaterally (-) wheezes, (-) rales, (-) rhonchi. Abdomen: Soft, moderate tenderness to RLQ palpation. non-distended, (-) organomegaly, normal bowel sounds. Back: (-) CVA tenderness Extremities: No edema. Skin: Warm, dry, (-) rash. Neuro: Alert and oriented x3, no focal deficits. Psychiatric: Mood normal, affect normal. Triage Information Reviewed: Yes Vital Signs On Initial Exam: Initial Vitals Temp Pulse Resp BP Pulse Ox 97.7 F 70 18 134/88 100 09/09/19 16:47 09/09/19 16:47 09/09/19 16:47 09/09/19 16:47 09/09/19 16:47 Vital Signs Reviewed: Yes Procedures - Sedation Patient Received Moderate/Deep Sedation with Procedure: No Diagnostics - Vital Signs Vital Signs Temp Pulse Resp BP Pulse Ox 09/09/19 18:44 98.2 F 62 16 128/75 98 09/09/19 16:47 97.7 F 70 18 134/88 100 - Laboratory Lab Results: Lab Results 09/09/19 09/09/19 09/09/19 Range/Units 17:24 17:24 17:24 WBC 9.8 (3.5-10.8) 10^3/uL RBC 5.02 H (3.70-4.87) 10^6 /uL Hgb 15.2 (12.0-16.0) g/dL Hct 44 (35-47) % MCV 88 (80-97) fL MCH 30 (27-31) pg MCHC 34 (31-36) g/dL RDW 13 (10-15) % Plt Count 183 (150-450) 10^3/uL MPV 9.4 (7.4-10.4) fL Neut % (Auto) 76.4 % Lymph % (Auto) 15.4 % [place] % (Auto) 6.6 % Eos % (Auto) 1.1 % Baso % (Auto) 0.5 % Absolute Neuts (auto) 7.5 (1.5-7.7) 10^3/ul Absolute Lymphs (auto) 1.5 (1.0-4.8) 10^3/ul Absolute Monos (auto) 0.7 (0-0.8) 10^3/ul Absolute Eos (auto) 0.1 (0-0.6) 10^3/ul Absolute Basos (auto) 0.0 (0-0.2) 10^3/ul Absolute Nucleated RBC 0.0 10^3/ul Nucleated RBC % 0.0 Sodium 139 (135-145) mmol/L Potassium 4.0 (3.5-5.0) mmol/L Chloride 105 (101-111) mmol/L Carbon Dioxide 27 (22-32) mmol/L Anion Gap 7 (2-11) mmol/L BUN 16 (6-24) mg/dL Creatinine 0.82 (0.51-0.95) mg/dL Est GFR ( Amer) 96.0 (>60) Est GFR (Non-Af Amer) 79.3 (>60) BUN/Creatinine Ratio 19.5 (8-20) Glucose 100 (70-100) mg/dL Lactic Acid 0.7 (0.5-2.0) mmol/L Calcium 9.8 (8.6-10.3) mg/dL Total Bilirubin 0.70 (0.2-1.0) mg/dL AST 15 (13-39) U/L ALT 21 (7-52) U/L Alkaline Phosphatase 97 (34-104) U/L C-Reactive Protein 1.06 (<8.01) mg/L Total Protein 7.1 (6.4-8.9) g/dL Albumin 4.3 (3.2-5.2) g/dL Globulin 2.8 (2-4) g/dL Albumin/Globulin Ratio 1.5 (1-3) Lipase 18 (11.0-82.0) U/L Beta HCG, Quant < 0.60 mIU/mL Urine Color Urine Appearance Urine pH (5-9) Ur Specific [place] (1.010-1.030) Urine Protein (Negative) Urine Ketones (Negative) Urine Blood (Negative) Urine Nitrate (Negative) Urine Bilirubin (Negative) Urine Urobilinogen (Negative) Ur Leukocyte Esterase (Negative) Urine Glucose (Negative) 09/09/19 Range/Units 17:29 WBC (3.5-10.8) 10^3/uL RBC (3.70-4.87) 10^6 /uL Hgb (12.0-16.0) g/dL Hct (35-47) % MCV (80-97) fL MCH (27-31) pg MCHC (31-36) g/dL RDW (10-15) % Plt Count (150-450) 10^3/uL MPV (7.4-10.4) fL Neut % (Auto) % Lymph % (Auto) % [place] % (Auto) % Eos % (Auto) % Baso % (Auto) % Absolute Neuts (auto) (1.5-7.7) 10^3/ul Absolute Lymphs (auto) (1.0-4.8) 10^3/ul Absolute Monos (auto) (0-0.8) 10^3/ul Absolute Eos (auto) (0-0.6) 10^3/ul Absolute Basos (auto) (0-0.2) 10^3/ul Absolute Nucleated RBC 10^3/ul Nucleated RBC % Sodium (135-145) mmol/L Potassium (3.5-5.0) mmol/L Chloride (101-111) mmol/L Carbon Dioxide (22-32) mmol/L Anion Gap (2-11) mmol/L BUN (6-24) mg/dL Creatinine (0.51-0.95) mg/dL Est GFR ( Amer) (>60) Est GFR (Non-Af Amer) (>60) BUN/Creatinine Ratio (8-20) Glucose (70-100) mg/dL Lactic Acid (0.5-2.0) mmol/L Calcium (8.6-10.3) mg/dL Total Bilirubin (0.2-1.0) mg/dL AST (13-39) U/L ALT (7-52) U/L Alkaline Phosphatase (34-104) U/L C-Reactive Protein (<8.01) mg/L Total Protein (6.4-8.9) g/dL Albumin (3.2-5.2) g/dL Globulin (2-4) g/dL Albumin/Globulin Ratio (1-3) Lipase (11.0-82.0) U/L Beta HCG, Quant mIU/mL Urine Color Colorless Urine Appearance Clear Urine pH 6.0 (5-9) Ur Specific [place] 1.002 L (1.010-1.030) Urine Protein Negative (Negative) Urine Ketones Negative (Negative) Urine Blood Negative (Negative) Urine Nitrate Negative (Negative) Urine Bilirubin Negative (Negative) Urine Urobilinogen Negative (Negative) Ur Leukocyte Esterase Negative (Negative) Urine Glucose Negative (Negative) Result Diagrams: 09/09/19 17:24 09/09/19 17:24 Lab Statement: Any lab studies that have been ordered have been reviewed, and results considered in the medical decision making process. - CT CT A/P CT Interpretation Completed By: Radiologist Summary of CT Findings: 1. Appendix not clearly identified, but there is no evidence of appendicitis. 2. Mild wall thickening versus artifact from under distention in the left and. sigmoid colon. Mild colitis not excluded. No bowel obstruction. 3. IUD in uterus. ED physician has reviewed this report. Abdominal Pain Fem Course/Dx - Course Course Of Treatment: 34-year-old female presents with right lower quadrant abdominal pain. Sharp and severe. Workup demonstrates normal white count. No UTI. Lactic acid negative. CT abdomen demonstrates no signs of appendicitis. Discussed at length with patient and family. Patient discharged home. Take ibuprofen. Follow up with PCP. Follow-up sooner for any worsening symptoms such as fever, worsening pain, vomiting. Omnipaque 300 (contrast), Troadol 15 mg IM, Zofran 4 mg IV - Diagnoses Provider Diagnoses: RLQ abdominal pain Discharge ED - Sign-Out/Discharge Documenting (check all that apply): Patient Departure - discharge - Discharge Plan Condition: Stable Disposition: HOME Patient Education Materials: Acute Abdominal Pain (ED) Forms: *Work Release Referrals: Fallon Ferreira MD [Primary Care Provider] - 2 Days Additional Instructions: PLEASE FOLLOW UP WITH YOUR PRIMARY CARE PROVIDER IN 1-3 DAYS. RETURN TO THE EMERGENCY DEPARTMENT IF YOU BEGIN TO EXPERIENCE ANY VOMITING, FEVER, AND WORSENING PAIN OVER THE NEXT FEW DAYS. TAKE TYLENOL 2 TABLETS 3 TIMES A DAY WITH FOOD TO MITIGATE ANY PAIN YOU EXPERIENCE. - Billing Disposition and Condition Condition: STABLE Disposition: Home - Attestation Statements Document Initiated by Jeane: Yes Documenting Scribe: Kannan Oscar Provider For Whom Jeane is Documenting (Include Credential): Vonda Wolfe MD Scribe Attestation: Kannan Evans, scribed for Vonda Wolfe MD on 09/10/19 at 0046. Scribe Documentation Reviewed: Yes Provider Attestation: The documentation as recorded by the Kannan goodrich accurately reflects the service I personally performed and the decisions made by , Vonda Wlofe MD Status of Scribe Document: Viewed
[2019-09-09] MEDS ORDERED: NS 0.9% 1000 ML** 1,000 ML IV ONE (20:21)
[2019-09-09] MEDS ORDERED: Iohexol 300* (CONTRAST) 10 ML SDV IV ONE (20:24)
[2019-09-09] MEDS ORDERED: fentaNYL* 50 MCG/ML 2 ML VIAL (100 MCG VIAL) IV SLOW PU ONE (22:45)
[2019-09-09 23:47] VITALS: BP 116/71
== END 2019-09-09 23:44 | disposition home or self-care (01) ==
LOC: ED 16:39
DX: R10.31 Right lower quadrant pain (principal); Z87.891 Personal history of nicotine dependence; Z88.5 Allergy status to narcotic agent
CPT/HCPCS: 36415; 74177; 80053; 81003; 83605; 83690; 84702; 85025; 86140; 96361; 96374; 96375; 99283; J1885; J2405; J3010; Q9967